=== PATIENT | male | born 1945 | race Caucasian/White ===

== ENCOUNTER → 2018-03-10 | Outpatient (CLI) | payer MEDICARE, OTHER ==
[~2018-03-10] MED LIST: IOHEXOL 100 ML; SOD CHLORIDE 0.9% 100 ML
[2018-03-10] MEDS: METOPROLOL 100 MG TAB (09:58)
[2018-03-10] MEDS: METOPROLOL 25 MG TAB PO (09:59)
[2018-03-10] MEDS: NITROGLYCERIN AEROSOL (4.9 GM) (11:00)
== END | disposition home or self-care (01) ==
LOC: C/S 09:13
DX: R06.02 Shortness of breath (principal)
CPT/HCPCS: 75574

== ENCOUNTER → 2018-08-02 | Outpatient (CLI) | payer MEDICARE, OTHER ==
[2018-08-02] MEDS: REGADENOSON 0.4 MG/5 ML SYG (11:10)
== END | disposition home or self-care (01) ==
LOC: EKG 08:42
DX: R07.9 Chest pain, unspecified (principal); I10 Essential (primary) hypertension
CPT/HCPCS: 78452; 93017; 93306